=== PATIENT | male | born 2000 | race African-American/Black ===

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

== ENCOUNTER 2021-12-16 15:49 | Emergency (ER) | payer SELFPAY ==
[~2021-12-16] VITALS: Ht 180.3 cm; Wt 72.0 kg
[2021-12-16] MEDS ORDERED: IBUPROFEN 600MG TABLET PO STA (16:32)
[2021-12-16] MEDS ORDERED: TETANUS, DIPHTHERIA, PERTUSSIS VAC/PF 0.5ML (>10YR OLD) IM ONE (16:45)
[2021-12-16 18:10] VITALS: BP 112/84
== END 2021-12-16 18:16 | disposition home or self-care (01) ==
LOC: ER 15:49
DX: S00.01XA Abrasion of scalp, initial encounter (principal); Y04.0XXA Assault by unarmed brawl or fight, initial encounter; Y93.89 Activity, other specified; Y92.89 Other specified places as the place of occurrence of the external cause; Y99.8 Other external cause status
CPT/HCPCS: 90471; 90715; 99284

== ENCOUNTER 2022-08-29 13:36 | Emergency (ER) | payer MEDICAID ==
[~2022-08-29] VITALS: Ht 177.8 cm; Wt 60.0 kg
[2022-08-29 13:38] VITALS: BP 109/66
[2022-08-29] MEDS ORDERED: BACITRACIN ZINC OINT UDPKT TOP ONE (14:45)
[2022-08-29] MEDS ORDERED: LIDOCAINE HCL/PF 1% 10 MG/ML 5ML VIAL INFIL ONE (14:45)
[2022-08-29] MEDS ORDERED: AMLODIPINE 2.5MG TABLET PO ONE (15:15)
[2022-08-29] MEDS ORDERED: TETANUS, DIPHTHERIA, PERTUSSIS VAC/PF 0.5ML (>10YR OLD) IM ONE (15:30)
[2022-08-29] MEDS ORDERED: BO1 TP (16:52)
== END 2022-08-29 17:44 | disposition home or self-care (01) ==
LOC: ER 13:38
DX: S01.112A Laceration without foreign body of left eyelid and periocular area, initial encounter (principal); V49.69XA Unspecified car occupant injured in collision with other motor vehicles in traffic accident, initial encounter; Y93.89 Activity, other specified; X58.XXXA Exposure to other specified factors, initial encounter; Y92.410 Unspecified street and highway as the place of occurrence of the external cause
CPT/HCPCS: 12013; 90471; 90715; 99283; J3490; Z7610